=== PATIENT | female | born 1955 | race Caucasian/White ===

== ENCOUNTER → 2016-10-05 | Day surgery (SDC) | payer MEDICARE ==
[~2016-10-05] MED LIST: BISA10SU RE; BUPIVACAINE HCL PF 0.75% 30 ML VIAL ONE; BUPIVACAINE/EPINEPHRINE 0.5% PF 10 ML VIAL ONE; DUONI; FLOV110A IN; FURO1TAB93 PO; HYDROCORTISONE SOD SUCCINATE 100 MG VIAL ONE; KETOROLAC TROMETHAMINE 30 MG/ML (IVP) VIAL IV PUSH ONE; LORA1TAB PO; METH10TA PO/SL; MIDAZOLAM HCL 2 MG/2 ML VIAL ONE; ONDANSETRON HCL 4 MG/2 ML VIAL IV PUSH ONE; POTA20PA PO; PRED5TAB PO; PROPOFOL 100 MG/10 ML INJ IV ONE; PROT40TA PO; RESP: ALBUTEROL 2.5 MG/3 ML NEB (SCH) ONE; RESP: SODIUM CHLORIDE 0.9% 5 ML NEB ONE; SODIUM CHLOR 0.9% 1000 ML BAG IV ONE; TRAZ50TA4 PO; VITA100018 PO; ceFAZolin INJ 1,000 MG VIAL ONE; oxyCODONE/ACETAMINOPHEN 5 MG/325 MG TAB ONE
--- NOTE | 2016-10-07 23:00 | MP ---
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 PROCEDURE Left elbow open treatment for olecranon fracture nonunion with excision of olecranon fracture nonunion fragment and advancement of triceps to ulna through drill holes and release of cubital tunnel. ANESTHESIA General and local. SURGEON Lena Jamil MD SUPERVISOR SPEECH SURGEON Won BRIGGS ESTIMATED BLOOD LOSS 50 mL. DRAINS None. SPECIMEN Bone fragment discarded. COMPLICATIONS None known. INDICATION Rosaura Heart is a 61-year-old female who sustained an elbow fracture some time ago. This has gone on to a nonunion with significant displacement of the fracture fragments. She has marked weakness and has significant pain and dysfunction to the elbow and also has developed cubital tunnel syndrome with ulnar nerve distribution symptomatology. Risks, benefits and the alternatives to treatment were thoroughly discussed and a detailed informed consent was obtained. parking assistant, Masoud Mcdonough, is an advanced registered nurse practitioner. His skill set was medically necessary for the performance of the operation. PROCEDURE IN DETAIL The patient is brought to the operating room. She was placed under general anesthetic. The left upper extremities was prepped and draped in usual sterile fashion. IV antibiotics were given. Time-out was completed. We had multiple blankets across the chest and we brought the arm across the chest to gain access to direct posterior approach to the elbow. Proceeded with a direct midline posterior approach and released the deep fatty tissue off of the extensor mechanism. We could palpate the bone fragment proximally. We could palpate the ulnar nerve in the cubital tunnel. We identified the ulnar nerve proximally and then proceeded to dissect out the nerve and release it delicately releasing it all the way up to the cubital tunnel and partially splitting the muscle so that it was fully decompressed. The bone fragment had rounded edges and was indicated for excision. We excised the bone fragment which then mobilized the triceps by releasing some of the deep fascial bands and then assessed for how best to repair it. We decided to use drill holes using fiber tape with [employer] specialty suture and we used the drill holes and then also did a horizontal suture and we did a whip stitch and then pulled this and advanced the tissue all the way up to bone. There was significant tightness of this and it required partial release of the deep fascial layer more posteriorly. Once we had it completely sewed down and we flexed the elbow and gravity flexion was to 70 degrees. We irrigated out with copious amounts of irrigation, proceeded to close the fascial layers with multiple absorbable suture layers and then nylon vertical mattress sutures. A posterior mold splint 45 degrees was applied. The patient was awaken and returned to recovery room in stable condition. INDICATION MD NISHANT Champion/ /1:27 PM /10:43 PM
== END | disposition home or self-care (01) ==
LOC: ESDC 08:45
PROVIDERS: ATTEND Orthopaedic Surgery Sports Medicine
DX: G56.22 Lesion of ulnar nerve, left upper limb (principal); S52.022K Displaced fracture of olecranon process without intraarticular extension of left ulna, subsequent encounter for closed fracture with nonunion
CPT/HCPCS: 01710; 01740; 24685; 64718; J0690; J1720; J1885; J2405; J3010; J7030; J7613; J2250